=== PATIENT | male | born 1940 | race Hispanic/Latino ===

== ENCOUNTER 2019-05-25 08:55 | Outpatient (CLI) | payer MEDICARE ==
--- NOTE | 2019-05-25 10:12 | Cat Scan Report ---
CT ABDOMEN AND PELVIS WITHOUT CONTRAST HISTORY: C61 PROSTATE CANCER COMPARISON: None. TECHNIQUE: Axial CT images were obtained through the abdomen and pelvis without IV contrast. Sagittal and coronal reformatted images. All CT scans at this location are performed using CT dose reduction for ALARA by means of automated exposure control. FINDINGS: CT ABDOMEN: Lung Bases: Mild cardiomegaly. The visualized lung bases are clear. Liver: No significant abnormality. Biliary: Multiple tiny gallstones are identified. No biliary dilatation or inflammation. Spleen: No significant abnormality. Unenlarged. Pancreas: No significant abnormality. Adrenals: No significant abnormality. Kidneys: No significant abnormality. Vasculature: Mild aortic calcifications. No aneurysm. Bowel/Peritoneum: No significant abnormality. No free air. No free fluid. Normal appendix. CT PELVIS: : The prostate gland is markedly enlarged measuring 7.8 x 8.5 cm in axial plane. There is abnormal soft tissue density between the prostate gland and bladder concerning for tumor extension. There is a lso a 2.5 cm soft tissue nodule in the left side of the pelvis which could represent an enlarged left internal iliac lymph node or pelvic metastasis. Osseous Structures: No suspicious lytic or blastic bony lesions are identified. Additional Findings: Multiple umbilical hernia containing fat. IMPRESSION: Markedly enlarged prostate gland as described. There is abnormal soft tissue density infiltrating pos teriorly toward the anterior rectal wall. Early rectal wall invasion is difficult to exclude. There i s also a 2.5 cm soft tissue density nodule in the left pelvis which could represent a metastatic depo sit or enlarged left internal iliac lymph node. Signer Name: Justice Flores Jr, MD Signed: 05/25/2019 10:08 AM Workstation Name: [id number]
--- NOTE | 2019-05-25 13:27 | Nuclear Medicine Report ---
NUCLEAR MEDICINE BONE SCAN, WHOLE BODY INDICATION: C61 PROSTATE CANCER. TECHNIQUE: 25.9 mCi of Tc-99m MDP were injected IV. Whole body images were obtained. COMPARISON: No previous bone scan. Correlation is made with the CT abdomen pelvis without contrast p erformed the same day. FINDINGS: Skeletal Structures: Fairly symmetric, likely degenerative uptake is present involving the shoulders , thoracic spine and knees. Skeletal Lesions: None. Soft Tissues: Normal. Kidneys: Normal, symmetric activity. Additional Findings: Mild contamination in the perineum is noted.. IMPRESSION: No evidence for osseous metastasis on bone scan or CT abdomen and pelvis.. Signer Name: Justice Flores Jr, MD Signed: 05/25/2019 1:23 PM Workstation Name: [id number]
== END 2019-05-25 08:56 | disposition home or self-care (01) ==
LOC: NM 08:55
PROVIDERS: ATTEND Urology
DX: C61 Malignant neoplasm of prostate (principal); N40.0 Benign prostatic hyperplasia without lower urinary tract symptoms; K42.9 Umbilical hernia without obstruction or gangrene; I70.0 Atherosclerosis of aorta; I51.7 Cardiomegaly; K80.20 Calculus of gallbladder without cholecystitis without obstruction
CPT/HCPCS: 74176; 78306; A9503

== ENCOUNTER 2021-05-31 10:04 | Observation (INO) | payer MEDICARE ==
[2021-05-31] MEDS ORDERED: LACTATED RINGERS 1,000 ML ONE (10:39)
[2021-05-31 11:16] LABS: Hematocrit 39.3 % (35.5-45.6); Hemoglobin 12.7 gm/dl (11.8-15.2); Mean Corpuscular HGB Conc 32 % (32-34); Mean Corpuscular Volume 94 fl (84-94); Platelet Count 248 K/mm3 (140-440); Red Cell Distribution Width 17.1 % (13.2-15.2)
[2021-05-31] MEDS ORDERED: LIDOCAINE MPF (2%) 20 MG/1 ML VIAL 5 ML ONE (11:35)
[2021-05-31] MEDS ORDERED: propofoL 200 MG/20 ML VIAL IV ONE (11:35)
[2021-05-31 11:44] LABS: Alanine Aminotransferase 8 units/L (7-56); Albumin 3.8 g/dL (3.9-5); BUN/Creatinine Ratio 20; Blood Urea Nitrogen 22 mg/dL (9-20); Calcium 10.4 mg/dL (8.4-10.2); Hemolysis Index 96
[2021-05-31] MEDS ORDERED: GENTAMICIN/NS 80 MG/100 ML 100 ML IV ONE ×2 (11:53→11:55)
--- NOTE | 2021-05-31 11:53 | Anesthesia Consultation ---
Anesthesia Consult and Med Hx Date of service: 05/31/21 - Airway Anesthetic Teeth Evaluation: Good ROM Head & Neck: Adequate Mental/Hyoid Distance: Adequate Mallampati Class: Class III Intubation Access Assessment: Possibly Difficult - Pulmonary Exam CTA: Yes - Cardiac Exam Cardiac Exam: RRR - Pre-Operative Health Status ASA Pre-Surgery Classification: ASA3 Proposed Anesthetic Plan: General - Pulmonary Hx Smoking: No Hx Asthma: No Hx Respiratory Symptoms: No Hx Sleep Apnea: Yes (DX SLEEP APNEA WITH CPAP USE.) - Cardiovascular System Hx Hypertension: Yes Hx Coronary Artery Disease: No (01/2021 negative Lexascan) Hx Heart Attack/AMI: No (11/2020 ECHO EF 55% LVH) Hx Cardia Arrhythmia: Yes (AFib; RBBB - has been off coumadin 5 days) Hx Peripheral Vascular Disease: Yes (LEGS) - Central Nervous System Hx Seizures: No CVA: Yes (20 years ago) Hx Psychiatric Problems: No - Gastrointestinal Hx Ulcer: No Hx Gastroesophageal Reflux Disease: No - Endocrine Hx Renal Disease: No Hx Liver Disease: No Hx Non-Insulin Dependent Diabetes: No Hx Thyroid Disease: No - Hematic Hx Anemia: No Hx Sickle Cell Disease: No - Other Systems Hx Alcohol Use: No Hx Substance Use: No Hx Cancer: Yes (Prostate) Hx Obesity: Yes - Additional Comments Anesthesia Medical History Comments: No hx of anesthesia complications
--- NOTE | 2021-05-31 11:54 | Anesthesia Day of Surgery ---
Anesthesia Day of Surgery - Day of Surgery Patient Examined: Yes Patient H&P Reviewed: Yes Patient is NPO: Yes
[2021-05-31] MEDS ORDERED: ceFAZolin/Water 2 GM/20 ML 2 GM/20 ML SYRINGE IV ONE (11:57)
[2021-05-31] MEDS ORDERED: HYDROmorphone 1 MG/1 ML INJ IV PRN ×3 (12:30→15:13)
[2021-05-31] MEDS ORDERED: ONDANSETRON 4 MG/2 ML INJ IV PRN ×3 (12:30→15:13)
[2021-05-31] MEDS: LACTATED RINGERS 1,000 ML IV SCH (12:35)
[2021-05-31 12:38] LABS: INR 1.33 (0.87-1.13)
[2021-05-31 12:39] LABS: Partial Thromboplastin Time 33.2 Sec. (24.2-36.6)
[2021-05-31] MEDS ORDERED: ONDANSETRON 4 MG/2 ML INJ ONE (12:41)
[2021-05-31] MEDS ORDERED: PHENYLEPHRINE/NS 1,000 MCG/10 ML SYRINGE (OR USE) IV ONE (12:41)
[2021-05-31] MEDS ORDERED: KETOROLAC 30 MG/1 ML INJ ONE (12:41)
[2021-05-31] MEDS ORDERED: dexAMETHasone 20 MG/5 ML VIAL ONE (12:41)
[2021-05-31] MEDS ORDERED: fentaNYL 100 MCG/2 ML INJ ONE (12:46)
[2021-05-31] MEDS ORDERED: ceFAZolin/STERILE WATER 2 GM/20 ML SYRINGE IV NR (13:30)
[2021-05-31] MEDS ORDERED: ZOLPIDEM 5 MG TAB PO PRN (13:58)
[2021-05-31] MEDS ORDERED: oxyCODONE /ACETAMINOPHEN 5-325MG TAB PO PRN (13:58)
[2021-05-31] MEDS ORDERED: NALOXONE 0.4 MG/1 ML INJ IV PRN (13:58)
--- NOTE | 2021-05-31 13:58 | Post Operative Note ---
Date of procedure: 05/31/21 Pre-op diagnosis: post xrt necros Post-op diagnosis: same Findings: necrotic inflammed tissue Procedure: cysto turp Anesthesia: GETA Surgeon: RUFUS DU Estimated blood loss: minimal Pathology: list (prostate) Specimen disposition: to lab Condition: stable Disposition: PACU
[2021-05-31] MEDS ORDERED: D5W/0.45% NACL/KCL 20 MEQ 20 MEQ/1,000 ML BAG IV SCH (14:00)
[2021-05-31] MEDS ORDERED: SODIUM CHLORIDE 0.9% IRRIG SOLN 2000 ML IR SCH (14:00)
[2021-05-31] MEDS ORDERED: SODIUM CHLORIDE 0.9% 1000 ML 1,000 ML ONE (14:58)
--- NOTE | 2021-05-31 15:00 | Operative Report ---
DATE OF SURGERY: 05/31/2021 PREOPERATIVE DIAGNOSES: Radiation prostatitis and urethritis with necrosis. POSTOPERATIVE DIAGNOSES: Radiation prostatitis and urethritis with necrosis ____ necrotic tissue in the prostatic urethra. PROCEDURES: Cystoscopy, TURP. SURGEON: Kuldip Watson MD ANESTHESIA: General. FINDINGS: This is a gentleman with recurrent urinary retention. We gave him a channel at the last time, but it closed down. We looked inside in the office and there was lots of necrosis that came back inside the channel. He now presents for more of a resection. The issues will be urinary incontinence. We will do a little more resection, try not to do this as a radical resection, but we will try to get him to urinate and off the catheter. DESCRIPTION OF PROCEDURE: The patient was brought to the operating room and placed on the operating table. Following the induction of anesthesia, placed in lithotomy position, prepped and draped in usual sterile fashion. We used the bipolar and clearly there was lots of blanched and white necrotic tissue within the urethra, mostly in the right lobe. We resected this clearly well away from the trigone. The prostatic urethra was now wide open with amount of tissue. No significant bleeding. The patient tolerated the procedure well. All the chips were evacuated out. We placed a 24 without any difficulty and you could even see on the cystogram how open the urethra was. We tried to leave a little tissue at the apex, as hopefully he will stay continent. The patient tolerated the procedure well. A 24, 3-way was placed. There was clear irrigation, brought to recovery in stable condition. We will watch him for 24 hours. TID: [id number] RECEIPT: [id number] VINAY/GILBERT/KALI
--- NOTE | 2021-05-31 15:05 | Fluoroscopy Report ---
FLUOROSCOPY CYSTOGRAM STATIC OR INDICATION: URINARY RETENTION. COMPARISON: None. IMPRESSION: 3 seconds of fluoroscopy time was provided by radiology during cystogram by urology. 2 f luoroscopic images of the pelvis are presented demonstrating a Cook catheter in place with a small a mount of contrast in the bladder. No obvious extravasation or vesicoureteral reflux. Please correlat e with the procedural report by urology. Signer Name: Justice Flores Jr, MD Signed: 05/31/2021 3:00 PM Workstation Name: [id number]
[2021-05-31] MEDS ORDERED: ACETAMINOPHEN 325 MG TAB PO PRN (15:13)
[2021-05-31] MEDS ORDERED: METOCLOPRAMIDE 10 MG/2 ML INJ IV PRN (15:13)
[2021-05-31] MEDS ORDERED: MORPHINE 2 MG/1 ML INJ IV PRN (15:13)
[2021-05-31] MEDS ORDERED: SODIUM CHLORIDE 0.9% 1000 ML 1,000 ML IV SCH (15:15)
--- NOTE | 2021-05-31 16:51 | Post Anesthesia Evaluation ---
- Post Anesthesia Evaluation Patient Participated: Yes Airway Patent: Yes Stable Respiratory Function: Yes Nausea/Vomiting: No Temp > 96.8F: Yes Pain Manageable: Yes Adequeate Hydration: Yes Anesthesia Complications: No Block Receding Appropriately: Not Applicable Patient on Ventilator: No
[2021-05-31] MEDS ORDERED: TAMSULOSIN 0.4 MG CAP PO SCH (18:00)
[2021-05-31] MEDS: DOCUSATE SODIUM 100 MG CAP PO SCH (22:25)
[2021-05-31] MEDS: FAMOTIDINE 20 MG/2 ML INJ IV SCH (22:25)
[2021-05-31] MEDS: HEPARIN 5,000 UNIT/1 ML VIAL SUB-Q SCH (22:26)
[2021-05-31] MEDS: ceFAZolin/NS 1 GM/50 ML 1 GM/50 ML BAG IV SCH ×2 (23:55→23:59)
--- NOTE | 2021-05-31 23:59 | Consultation ---
History of Present Illness - Reason for Consult Consult date: 05/31/21 Medical management Requesting physician: RUFUS DU - History of Present Illness Status post TURP. Postop patient doing well. Patient has a history of hypertension hyperlipidemia and BPH Past History Past Medical History: hypertension, hyperlipidemia, other (BPH) Past Surgical History: TURP Social history: lives with family, full code Family history: hypertension Medications and Allergies Allergies Allergy/AdvReac Type Severity Reaction Status Date / Time No Known Allergies Allergy Verified 05/26/21 08:57 Home Medications Medication Instructions Recorded Confirmed Last Taken Type [place] 3 mg PO DAILY 03/15/21 05/26/21 03/16/21 09:00 History Citracal-D3 200Mg-250 Unit Tab 1 tab PO BID 03/15/21 05/26/21 03/16/21 09:00 History Enzalutamide [Xtandi] 80 mg PO BID 03/15/21 05/26/21 03/21/21 17:00 History Loratadine [Allergy Relief] 10 mg PO Q48H 03/15/21 05/26/21 03/16/21 09:00 History Metoprolol [Lopressor TAB] 12.5 mg PO HS 03/15/21 05/26/21 03/21/21 21:00 History Relugolix [Orgovyx] 120 mg PO DAILY 03/15/21 05/26/21 03/21/21 09:00 History Simvastatin 20 mg PO DAILY 03/15/21 05/26/21 03/21/21 09:00 History Strontium Citrate 340 mg PO DAILY 03/15/21 05/26/21 03/16/21 09:00 History Warfarin [Coumadin] 5 mg PO QDAY 03/15/21 05/26/21 03/16/21 09:00 History Metoprolol [Lopressor] 25 mg PO QAM 03/23/21 05/26/21 03/22/21 07:00 History 25 MG Triamter/Hctz 37.5-25 mg 1 tab PO QDAY 03/23/21 05/26/21 03/21/21 09:00 History [Maxzide-25] 37.5/25 Warfarin [Coumadin] 2.5 mg PO QDAY 03/23/21 05/26/21 Unknown History Active Meds: Active Medications Acetaminophen (Acetaminophen 325 Mg Tab) 650 mg PO Q4H PRN PRN Reason: Pain MILD(1-3)/Fever >100.5/CLARK Docusate Sodium (Docusate Sodium 100 Mg Cap) 100 mg PO BID [facility] Last Admin: 05/31/21 22:25 Dose: 100 mg Famotidine (Famotidine 20 Mg/2 Ml Inj) 20 mg IV BID [facility] Last Admin: 05/31/21 22:25 Dose: 20 mg Heparin Sodium (Porcine) (Heparin 5,000 Unit/1 Ml Vial) 5,000 unit SUB-Q Q12HR [facility] Last Admin: 05/31/21 22:26 Dose: 5,000 unit Hydromorphone HCl (Hydromorphone 1 Mg/1 Ml Inj) 0.5 mg IV Q3H PRN PRN Reason: Pain , Severe (7-10) Lactated Ringer's (Lactated Ringers) 1,000 mls @ 125 mls/hr IV DIRECT [facility] Last Admin: 05/31/21 12:35 Dose: 125 mls/hr Potassium Chloride/Dextrose/Sod Cl (D5w/0.45% Nacl/Kcl 20 Meq) 20 meq in 1,000 mls @ 125 mls/hr IV DIRECT [facility] Cefazolin Sodium (Ancef/Ns 1 Gm/50 Ml) 1 gm in 50 mls @ 100 mls/hr IV Q8H [facility]; Protocol Stop: 06/02/21 06:29 Sodium Chloride (Nacl 0.9% 1000 Ml) 1,000 mls @ 100 mls/hr IV DIRECT [facility] Metoclopramide HCl (Metoclopramide 10 Mg/2 Ml Inj) 10 mg IV Q6H PRN PRN Reason: Nausea And Vomiting Morphine Sulfate (Morphine 2 Mg/1 Ml Inj) 2 mg IV Q4H PRN PRN Reason: Pain, Moderate (4-6) Naloxone HCl (Naloxone 0.4 Mg/1 Ml Inj) 0.1 mg IV Q2MIN PRN PRN Reason: Res Rate </= 8 or 02 SAT < 92% Ondansetron HCl (Ondansetron 4 Mg/2 Ml Inj) 4 mg IV Q8H PRN PRN Reason: Nausea And Vomiting Ondansetron HCl (Ondansetron 4 Mg/2 Ml Inj) 4 mg IV Q3H PRN PRN Reason: Nausea And Vomiting Oxycodone/Acetaminophen (Oxycodone /Acetaminophen 5-325mg Tab) 2 tab PO Q6H PRN PRN Reason: Pain, Moderate (4-6) Sodium Chloride (Sodium Chloride 0.9% Irrig Soln 2000 Ml) 2,000 ml IR DIRECT [facility] Sodium Chloride (Sodium Chloride 0.9% 10 Ml Flush Syringe) 10 ml IV BID [facility] Last Admin: 05/31/21 22:26 Dose: 10 ml Sodium Chloride (Sodium Chloride 0.9% 10 Ml Flush Syringe) 10 ml IV PRN PRN PRN Reason: LINE FLUSH Tamsulosin HCl (Tamsulosin 0.4 Mg Cap) 0.8 mg PO QPM [facility] Last Admin: 05/31/21 22:44 Dose: 0.8 mg Zolpidem Tartrate (Zolpidem 5 Mg Tab) 5 mg PO QHS PRN PRN Reason: Sleep Last Admin: 05/31/21 22:45 Dose: 5 mg Review of Systems All systems: negative Exam - Constitutional Vitals: Temp Pulse Resp BP Pulse Ox 97.5 F L 70 18 96/56 100 05/31/21 22:31 05/31/21 22:31 05/31/21 22:31 05/31/21 22:31 05/31/21 22:31 General appearance: Present: no acute distress, well-nourished - EENT Eyes: Present: PERRL ENT: hearing intact, clear oral mucosa - Neck Neck: Present: supple, normal ROM - Respiratory Respiratory effort: normal Respiratory: bilateral: CTA - Cardiovascular Heart rate: 78 Rhythm: regular Heart Sounds: Present: S1 & S2. Absent: rub, click - Extremities Extremities: no ischemia, pulses intact, pulses symmetrical, No edema Peripheral Pulses: within normal limits - Abdominal General gastrointestinal: Present: soft, non-tender, non-distended, normal bowel sounds Male genitourinary: Present: normal - Integumentary Integumentary: Present: clear, warm, dry - Musculoskeletal Musculoskeletal: gait normal, strength equal bilaterally - Psychiatric Psychiatric: appropriate mood/affect, intact judgment & insight - Neurologic Neurologic: CNII-XII intact, moves all extremities - Allied Health Allied health notes reviewed: nursing Results - Labs CBC & Chem 7: 06/01/21 04:26 06/01/21 04:26 Labs: Abnormal lab results 05/31/21 05/31/21 05/31/21 Range/Units 11:04 11:04 11:04 RDW 17.1 H (13.2-15.2) % PT 17.8 H (12.2-14.9) Sec. INR 1.33 H (0.87-1.13) BUN 22 H (9-20) mg/dL Calcium 10.4 H (8.4-10.2) mg/dL Albumin 3.8 L (3.9-5) g/dL Assessment and Plan - Patient Problems (1) Chronic a-fib Current Visit: No Status: Chronic Plan to address problem: Patient on Coumadin, can resume after discharge (2) BPH (benign prostatic hyperplasia) Current Visit: No Status: Chronic Qualifiers: Lower urinary tract symptom presence: symptoms present Plan to address problem: Patient had TURP today (3) Hyperlipidemia Current Visit: No Status: Chronic Qualifiers: Hyperlipidemia type: mixed hyperlipidemia Qualified Code(s): E78.2 - Mixed hyperlipidemia Plan to address problem: Continue statins (4) Hypertension Current Visit: No Status: Chronic Qualifiers: Hypertension type: primary hypertension Qualified Code(s): I10 - Essential (primary) hypertension Plan to address problem: Continue antihypertensives and adjust medications Patient is on metoprolol and Maxide (5) DVT prophylaxis Current Visit: No Status: Acute Plan to address problem: On SCDs and GI prophylaxis (6) Advance care planning Current Visit: Yes Status: Acute Plan to address problem: Disease education conducted, care plan discussed, diagnosis discussed, prognosis discussed. Patient is full code. Patient acknowledges understanding and agreement with care plan. +30 minutes.
[2021-06-01 05:14] LABS: Basophils % (Auto) 0.5 % (0.0-1.8); Eosinophils # (Auto) 0.1 K/mm3 (0.0-0.4); Eosinophils % (Auto) 1.8 % (0.0-4.3); Hematocrit 33.2 % (35.5-45.6); Hemoglobin 10.6 gm/dl (11.8-15.2); Lymphocytes # (Auto) 0.5 K/mm3 (1.2-5.4); Lymphocytes % (Auto) 14.8 % (13.4-35.0); Mean Corpuscular HGB Conc 32 % (32-34); Mean Corpuscular Volume 94 fl (84-94); Monocytes # (Auto) 0.4 K/mm3 (0.0-0.8); Monocytes % (Auto) 11.6 % (0.0-7.3); Platelet Count 192 K/mm3 (140-440); Red Blood Count 3.53 M/mm3 (3.65-5.03); Red Cell Distribution Width 16.9 % (13.2-15.2)
[2021-06-01 05:45] LABS: BUN/Creatinine Ratio 21; Blood Urea Nitrogen 25 mg/dL (9-20); Calcium 8.7 mg/dL (8.4-10.2); Hemolysis Index 52
[2021-06-01 05:51] LABS: Alanine Aminotransferase < 5 units/L (7-56)
[2021-06-01] MEDS: ceFAZolin/NS 1 GM/50 ML 1 GM/50 ML BAG IV SCH (08:00)
[2021-06-01] MEDS: LACTATED RINGERS 1,000 ML IV SCH (08:00)
--- NOTE | 2021-06-01 08:18 | Progress Note ---
Assessment and Plan urine clear cath irrigated tov cath out Subjective Date of service: 06/01/21 Principal diagnosis: aur Objective - Constitutional Vitals: Vital Signs - 12hr 05/31/21 05/31/21 06/01/21 20:24 22:31 01:41 Temperature 97.5 F L Pulse Rate 63 70 Respiratory 18 Rate Blood Pressure 96/56 Blood Pressure 95/56 [Left] Blood Pressure 95/56 [Right] O2 Sat by Pulse 100 99 Oximetry 06/01/21 06/01/21 03:53 07:26 Temperature 97.1 F L 98.2 F Pulse Rate 77 71 Respiratory 18 16 Rate Blood Pressure 101/65 91/60 Blood Pressure [Left] Blood Pressure [Right] O2 Sat by Pulse 99 99 Oximetry General appearance: Present: no acute distress - Respiratory Respiratory effort: normal Extremities: no ischemia - Gastrointestinal General gastrointestinal: Present: non-tender - Labs CBC & Chem 7: 06/01/21 04:26 06/01/21 04:26 Labs: Abnormal lab results 05/31/21 05/31/21 05/31/21 Range/Units 11:04 11:04 11:04 WBC (4.5-11.0) K/mm3 RBC (3.65-5.03) M/mm3 Hgb (11.8-15.2) gm/dl Hct (35.5-45.6) % RDW 17.1 H (13.2-15.2) % [place] % (Auto) (0.0-7.3) % Lymph # (Auto) (1.2-5.4) K/mm3 Seg Neutrophils % (40.0-70.0) % PT 17.8 H (12.2-14.9) Sec. INR 1.33 H (0.87-1.13) Chloride (98-107) mmol/L BUN 22 H (9-20) mg/dL Glucose (75-100) mg/dL Calcium 10.4 H (8.4-10.2) mg/dL ALT (7-56) units/L Total Protein (6.3-8.2) g/dL Albumin 3.8 L (3.9-5) g/dL 06/01/21 06/01/21 Range/Units 04:26 04:26 WBC 3.6 L (4.5-11.0) K/mm3 RBC 3.53 L (3.65-5.03) M/mm3 Hgb 10.6 L (11.8-15.2) gm/dl Hct 33.2 L D (35.5-45.6) % RDW 16.9 H (13.2-15.2) % [place] % (Auto) 11.6 H (0.0-7.3) % Lymph # (Auto) 0.5 L (1.2-5.4) K/mm3 Seg Neutrophils % 71.3 H (40.0-70.0) % PT (12.2-14.9) Sec. INR (0.87-1.13) Chloride 108.3 H (98-107) mmol/L BUN 25 H (9-20) mg/dL Glucose 106 H (75-100) mg/dL Calcium (8.4-10.2) mg/dL ALT < 5 L (7-56) units/L Total Protein 5.9 L D (6.3-8.2) g/dL Albumin 3.0 L (3.9-5) g/dL Medications & Allergies - Medications Allergies/Adverse Reactions: Allergies No Known Allergies Allergy (Verified 05/26/21 08:57) Home Medications: Home Medications Medication Instructions Recorded Confirmed Last Taken Type [place] 3 mg PO DAILY 03/15/21 05/26/21 03/16/21 09:00 History Citracal-D3 200Mg-250 Unit Tab 1 tab PO BID 03/15/21 05/26/21 03/16/21 09:00 History Enzalutamide [Xtandi] 80 mg PO BID 03/15/21 05/26/21 03/21/21 17:00 History Loratadine [Allergy Relief] 10 mg PO Q48H 03/15/21 05/26/21 03/16/21 09:00 History Metoprolol [Lopressor TAB] 12.5 mg PO HS 03/15/21 05/26/21 03/21/21 21:00 History Relugolix [Orgovyx] 120 mg PO DAILY 03/15/21 05/26/21 03/21/21 09:00 History Simvastatin 20 mg PO DAILY 03/15/21 05/26/21 03/21/21 09:00 History Strontium Citrate 340 mg PO DAILY 03/15/21 05/26/21 03/16/21 09:00 History Warfarin [Coumadin] 5 mg PO QDAY 03/15/21 05/26/21 03/16/21 09:00 History Metoprolol [Lopressor] 25 mg PO QAM 03/23/21 05/26/21 03/22/21 07:00 History 25 MG Triamter/Hctz 37.5-25 mg 1 tab PO QDAY 03/23/21 05/26/21 03/21/21 09:00 History [Maxzide-25] 37.5/25 Warfarin [Coumadin] 2.5 mg PO QDAY 03/23/21 05/26/21 Unknown History Active Medications: Generic Name Dose Route Start Last Admin Trade Name Freq PRN Reason Stop Dose Admin Acetaminophen 650 mg 05/31/21 15:13 Acetaminophen 325 Mg Tab PO Q4H PRN Pain MILD(1-3)/Fever >100.5/CLARK Docusate Sodium 100 mg 05/31/21 22:00 05/31/21 22:25 Docusate Sodium 100 Mg Cap PO 100 mg BID [facility] Administration Famotidine 20 mg 05/31/21 16:00 05/31/21 22:25 Famotidine 20 Mg/2 Ml Inj IV 20 mg BID [facility] Administration Heparin Sodium (Porcine) 5,000 unit 05/31/21 22:00 05/31/21 22:26 Heparin 5,000 Unit/1 Ml Vial SUB-Q 5,000 unit Q12HR [facility] Administration Hydromorphone HCl 0.5 mg 05/31/21 15:13 Hydromorphone 1 Mg/1 Ml Inj IV Q3H PRN Pain , Severe (7-10) Lactated Ringer's 1,000 mls @ 125 mls/hr 05/31/21 12:30 06/01/21 08:00 Lactated Ringers IV 125 mls/hr DIRECT [facility] Administration Potassium Chloride/Dextrose/Sod Cl 20 meq in 1,000 mls @ 125 mls/hr 05/31/21 14:00 D5w/0.45% Nacl/Kcl 20 Meq IV DIRECT [facility] Cefazolin Sodium 1 gm in 50 mls @ 100 mls/hr 05/31/21 14:00 06/01/21 08:00 Ancef/Ns 1 Gm/50 Ml IV 06/02/21 06:29 100 mls/hr Q8H [facility] Administration Protocol Sodium Chloride 1,000 mls @ 100 mls/hr 05/31/21 15:15 Nacl 0.9% 1000 Ml IV DIRECT [facility] Metoclopramide HCl 10 mg 05/31/21 15:13 Metoclopramide 10 Mg/2 Ml Inj IV Q6H PRN Nausea And Vomiting Metoprolol Tartrate 25 mg 06/01/21 10:00 Metoprolol Tartrate 25 Mg Tab PO QAM [facility] Metoprolol Tartrate 12.5 mg 06/01/21 22:00 Metoprolol Tartrate 25 Mg Tab PO QHS [facility] Miscellaneous Medication 80 mg 06/01/21 10:00 Enzalutamide [Xtandi] PO BID [facility] Miscellaneous Medication 120 mg 06/01/21 10:00 Relugolix [Orgovyx] PO DAILY [facility] Morphine Sulfate 2 mg 05/31/21 15:13 Morphine 2 Mg/1 Ml Inj IV Q4H PRN Pain, Moderate (4-6) Naloxone HCl 0.1 mg 05/31/21 13:58 Naloxone 0.4 Mg/1 Ml Inj IV Q2MIN PRN Res Rate </= 8 or 02 SAT < 92% Ondansetron HCl 4 mg 05/31/21 15:13 Ondansetron 4 Mg/2 Ml Inj IV Q3H PRN Nausea And Vomiting Oxycodone/Acetaminophen 2 tab 05/31/21 13:58 06/01/21 05:03 Oxycodone /Acetaminophen 5-325mg Tab PO 1 tab Q6H PRN Administration Pain, Moderate (4-6) Pravastatin Sodium 40 mg 06/01/21 22:00 Pravastatin 40 Mg Tab PO QHS [facility] Sodium Chloride 2,000 ml 05/31/21 14:00 Sodium Chloride 0.9% Irrig Soln 2000 Ml IR DIRECT [facility] CARL[facility] Sodium Chloride 10 ml 05/31/21 22:00 05/31/21 22:26 Sodium Chloride 0.9% 10 Ml Flush Syringe IV 10 ml BID [facility] Administration Sodium Chloride 10 ml 05/31/21 15:13 Sodium Chloride 0.9% 10 Ml Flush Syringe IV PRN PRN LINE FLUSH Tamsulosin HCl 0.8 mg 05/31/21 18:00 05/31/21 22:44 Tamsulosin 0.4 Mg Cap PO 0.8 mg QPM [facility] Administration Triamterene/Hydrochlorothiazide 1 each 06/01/21 10:00 Triamter/Hctz 37.5-25 Mg Tab PO QDAY [facility] Zolpidem Tartrate 5 mg 05/31/21 13:58 05/31/21 22:45 Zolpidem 5 Mg Tab PO 5 mg QHS PRN Administration Sleep
--- NOTE | 2021-06-01 08:19 | Discharge Summary ---
Short Stay Discharge Plan Activity: other (no straining) Weight Bearing Status: Full Weight Bearing Diet: low fat, low cholesterol Follow up with: PRIMARY CAREMD [Primary Care Provider] - 7 Days RUFUS DU MD [Staff Physician] - 7 Days
[2021-06-01] MEDS: HEPARIN 5,000 UNIT/1 ML VIAL SUB-Q SCH (09:06)
[2021-06-01] MEDS: FAMOTIDINE 20 MG/2 ML INJ IV SCH (09:06)
[2021-06-01] MEDS: DOCUSATE SODIUM 100 MG CAP PO SCH (09:07)
[2021-06-01] MEDS ORDERED: TRIAMTER/HCTZ 37.5-25 MG TAB PO SCH (10:00)
[2021-06-01] MEDS ORDERED: ENZALUTAMIDE 40 MG PO SCH (10:00)
[2021-06-01] MEDS ORDERED: RELUGOLIX 120 MG PO SCH (10:00)
[2021-06-01] MEDS ORDERED: NON-FORMULARY EACH (Simvastatin [Simvastatin] 20 MG Tablet) PO SCH (10:00)
[2021-06-01] MEDS ORDERED: METOPROLOL TARTRATE 25 MG TAB PO SCH ×2 (10:00→22:00)
[2021-06-01 11:25] VITALS: BP 106/68
[2021-06-01] MEDS ORDERED: PRAVASTATIN 40 MG TAB PO SCH (22:00)
[2021-06-01] MEDS ORDERED: METOPROLOL TARTRATE 50 MG TAB PO SCH (22:00)
== END 2021-06-01 16:03 | disposition home or self-care (01) ==
LOC: OR 10:04 → 4A 15:13
PROVIDERS: ADMIT Internal Medicine; ATTEND Urology
DX: C61 Malignant neoplasm of prostate (principal); N41.0 Acute prostatitis; I10 Essential (primary) hypertension; I48.20 Chronic atrial fibrillation, unspecified; E78.5 Hyperlipidemia, unspecified; N40.1 Benign prostatic hyperplasia with lower urinary tract symptoms; R33.8 Other retention of urine; Z90.79 Acquired absence of other genital organ(s); Z79.01 Long term (current) use of anticoagulants; Z79.899 Other long term (current) drug therapy; Z98.890 Other specified postprocedural states
CPT/HCPCS: 36415; 52601; 74430; 80053; 85025; 85027; 85610; 85730; 86850; 86900; 86901; 87641; 88305; 96365; 96366; 96372; 96375; 96376; G0378; J0690; J1100; J1580; J1644; J1885; J2370; J2405; J2704; J3010; J3490; J7120; Q9967; 80048; Q0162; J7030